=== PATIENT | female | born 1950 | race Caucasian/White ===

== ENCOUNTER 2022-11-27 17:38 | Emergency (ER) | payer MEDICARE, SELFPAY ==
[2022-11-27] VITALS (9 sets, daily range): BP systolic 120–163; BP diastolic 43–100; PULSE 80–93; RESP 15–20; TEMP 36.4; O2SAT 96–99
--- NOTE | ~2022-11-27 | CT_ITS ---
EXAMINATION: CTA chest PE protocol DATE: 11/27/2022 22:45 INDICATION: Chest tightness post recent surgery TECHNIQUE: Computed tomography (CT) pulmonary angiogram of the chest was performed with 100 mL Omnipa que-350 intravenous contrast. Additional 3D reconstructions utilizing coronal maximum intensity proje ction (MIP) were performed. Automated exposure control and iterative reconstruction technique were em ployed. The dose-length product was 230.33 mGy-cm. COMPARISON: None FINDINGS: Excellent contrast opacification of the pulmonary arteries. There is mild streak artifact from dense contrast in the superior vena cava and right atrium. Minimal scattered respiratory motion artifact wh ich does not significantly limit evaluation. No pulmonary embolism. No pneumonia or pulmonary edema. Mild bibasilar atelectasis. Atelectasis accounts for the blunting at the posterior sulci on the prior radiographs. No pleural effusion. Heart size is normal. Thoracic aorta is normal in caliber with no dissection. No pathologically enlarged thoracic lymphadenopathy. The visualized upper abdomen is unre markable. Severe thoracic spondylosis. Partially visualized plate and screw fixation for anterior spi nal fusion at C6-C7. IMPRESSION: 1. No pulmonary embolism. 2. Bibasilar atelectasis. Reviewed, dictated and finalized at location A.
--- NOTE | ~2022-11-27 | XR_ITS ---
EXAMINATION: XR chest 2V DATE: 11/27/2022 18:18 INDICATION: Chest tightness TECHNIQUE: frontal and lateral views of the chest were obtained. COMPARISON: None FINDINGS: Distinct opacities at the posterior lung bases on the lateral projection, unclear whether left-sided, right-sided or bilaterally. No clearly defined mild linear discoid atelectasis at the bilateral lung bases on the frontal projection. No pneumothorax. Possible small right pleural effusion. The cardiom ediastinal silhouette is normal. Plate-screw fixation for lower cervical anterior spinal fusion. Dege nerative loose osteochondral body at the deep subscapular recess of the left glenohumeral joint. IMPRESSION: 1. Mild bibasilar opacities which could represent atelectasis, mild pulmonary edema, pneumonia or mart e combination thereof. 2. Likely small right pleural effusion. Reviewed, dictated and finalized at location A. IMPRESSION: 1. Mild bibasilar opacities which could represent atelectasis, mild pulmonary e hugh, pneumonia or some combination thereof. 2. Likely small right pleural effusion.
--- NOTE | 2022-11-27 17:40 | ECG_ITS ---
Measurements Intervals [place] Rate: 83 P: 12 VT: 143 QRS: 32 QRSD: 85 T: 32 QT: 326 QTc: 383 Interpretive Statements SINUS RHYTHM BASELINE ARTIFACT- I, II, III, AVR, AVL, AVF, V5-V6 NORMAL ECG NO PREVIOUS ECG AVAILABLE FOR COMPARISON Electronically Signed On 11-27-2022 20:26:58 CDT by Hussein Hull D.O.
[2022-11-27 17:57] LABS: Basophils Percent Auto 0.5 % (0.2-1.2); Eosinophils Absolute Auto 0.3 K/mm3 (0-0.3); Eosinophils Percent Auto 4.4 % (0-4.4); Hemoglobin 12.8 g/dL (12.0-15.0); Immature Granulocyte Absolute 0.02 K/mm3 (0.00-0.031); Immature Granulocyte Percent A 0.3 % (0-0.5); Lymphocytes Percent Auto 25.2 % (18.3-44.2); Mean Corpuscular Volume 93.7 fl (80-100); Mean Platelet Volume 8.7 fl (7.4-10.4); Monocytes Absolute Auto 0.7 K/mm3 (0.1-0.6); Monocytes Percent Auto 11.4 % (2.6-8.5); Neutrophils Absolute Auto 3.5 K/mm3 (1.3-6.7); Neutrophils Percent Auto 58.2 % (45.5-73.1); Platelet Count Result 377 k/mm3 (150-375); Red Blood Count 4.27 M/mm3 (4.2-5.4); Red Cell Distribution Width 12.4 % (11.5-14.5)
[2022-11-27 18:06] LABS: Prothrombin Time 13.4 Seconds (11.1-14.7)
[2022-11-27 18:07] LABS: Partial Thromboplastin Time 26.9 SECONDS (22.3-36.8)
[2022-11-27 18:10] LABS: Alanine Aminotransferase 32 U/L (6-35); Albumin Level 3.8 g/dL (3.5-5.1); Alkaline Phosphatase 80 U/L (38-126); Anion Gap 2 mmol/L (8-16); Aspartate Amino Transferase 42 U/L (14-36); Bilirubin,Total 0.4 mg/dL (0.2-1.3); Blood Urea Nitrogen 17 mg/dL (7-17); Calcium 8.9 mg/dL (8.4-10.2); Carbon Dioxide 33 mmol/L (22-30); Chloride 103 mmol/L (98-107); Estimated CRCL calculation 59 ml/min; Estimated Glomerular Filt Rate > 60; Glucose 116 mg/dL (65-110); Lipase 114 U/L (23-300); Potassium 3.9 mmol/L (3.4-5.0); Sodium 138 mmol/L (137-145)
[2022-11-27 18:21] LABS: Troponin I < 0.012 ng/mL (0.000-0.034)
--- NOTE | 2022-11-27 20:30 | PC.NURSE ---
patient states that her chest pain has subsided. strongly suggested with patient's recent knee replacement that she continue to wait for a room to be evaluated by a provider.
[2022-11-27 21:48] LABS: Troponin I < 0.012 ng/mL (0.000-0.034)
--- NOTE | 2022-11-27 23:21 | ED.GENADULT ---
HPI - General Adult General Chief complaint: Chest Pain Stated complaint: chest pain/elevated BP Time Seen by Provider: 11/27/22 22:02 History of Present Illness HPI narrative: this is a 72-year-old female presenting ED with a chief complaint of chest tightness. The tightness started at 3:30 p.m. after she woke from a nap. It is nonradiating. It has since resolved. She has had this happen 1 or 2 times per month for the last 5 months. It improves when she relaxes and there are no exacerbating symptoms. She does say was associated with some shortness of breath. There is no diaphoresis vomiting or exertional component. She did just have a total knee replacement. No other complaints. Related Data Allergies Allergy/AdvReac Type Severity Reaction Status Date / Time Penicillins Allergy Intermediate Rash Verified 06/19/17 10:53 [facility] Past Medical History Medical History GERD (gastroesophageal reflux disease) Surgical History Surgical History H/O total knee replacement Exam Narrative: APPEARANCE: No apparent distress. Patient is pleasant polite during the interview Head: atraumatic. EYES: EOMI, NOSE: Atraumatic NECK: Trachea midline RESPIRATORY: No increased rate of breathing , clear to auscultation CARDIOVASCULAR: RRR, no peripheral edema ABDOMINAL: Non-distended MUSCULOSKELETAl: focal exam of the left knee revealed a well-healed surgical scar, without significant swelling or warmth to the joint. No swelling of the calf. NEURO: Alert. Moving 4/4 extremities SKIN:: Warm, dry. Normal color PSYCHIATRIC: Normal affect Course Vital Signs Vital signs: Vital Signs Temperature 97.6 F 11/27/22 17:41 Pulse Rate 86 11/27/22 17:41 Respiratory Rate 20 11/27/22 17:41 Blood Pressure 136/93 H 11/27/22 17:41 Pulse Oximetry 99 11/27/22 17:41 Oxygen Delivery Room Air 11/27/22 17:41 Temperature 97.6 F 11/27/22 21:23 Pulse Rate 93 11/27/22 22:31 Respiratory Rate 17 11/27/22 22:31 Blood Pressure 154/100 H 11/27/22 22:31 Pulse Oximetry 98 11/27/22 23:18 Oxygen Delivery Room Air 11/27/22 23:18 Medical Decision Making MDM Narrative Medical decision making narrative: -Presentation: 72-year-old female presenting with chest tightness that has since resolved. Recent surgery. -DDX includes but is not limited to: ACS, PE, anxiety, pneumonia -Co-morbidities complicating care: recent knee replacement surgery -Social determinants of health: patient is a manager finance, she lives alone, accompanied by her friend Mari -External Chart Review: none -Hx from independent Sources: Mari @ bedside -Discussion of Management/Consultants: none -Independent interpretation of studies: CBC normal. Metabolic panel normal. Troponins undetectable x2. Chest x-ray showed bibasilar atelectasis with small right pleural effusion. CTA chest showed no pulmonary embolism. Independent EKG interpretation: Rhythm [sinus], Rate [83], [place] -[normal], [place] -[normal], QRS [narrow], QTC [normal], T waves -[negative for concerning inversions], ST Segments - [Negative for concerning elevations] Final interpretations: [Normal Sinus Rhythm] Dx tests considered but not ordered: none -Procedures: none -Interventions: none -Shared decision making / Disposition: patient's workup is negative. Heart score is 2. Patient is following up with cardiology next week. Patient return if her condition gets worse. -RX Vital Signs Vital Signs: Vital Signs Temperature 97.6 F 11/27/22 17:41 Pulse Rate 86 11/27/22 17:41 Respiratory Rate 20 11/27/22 17:41 Blood Pressure 136/93 H 11/27/22 17:41 Pulse Oximetry 99 11/27/22 17:41 Oxygen Delivery Room Air 11/27/22 17:41 Temperature 97.6 F 11/27/22 21:23 Pulse Rate 93 11/27/22 22:31 Respiratory Rate 17 11/27/22 22:31 Bl
== END 2022-11-27 23:36 | disposition home or self-care (01) ==
PROVIDERS: Emergency Medicine; Emergency Provider Emergency Medicine
DX: R07.89 Other chest pain (principal); K21.9 Gastro-esophageal reflux disease without esophagitis
CPT/HCPCS: 36415; 71046; 71275; 80053; 83690; 84484; 85025; 85610; 85730; 93005; 99284; Q9967

== ENCOUNTER 2023-04-14 08:02 | Emergency (ER) | payer MEDICARE, SELFPAY ==
[2023-04-14 08:11] VITALS: BP 157/85; PULSE 76; RESP 16; TEMP 36.8; O2SAT 97
--- NOTE | 2023-04-14 08:15 | ED.URI ---
HPI - URI/Sore Throat General Chief Complaint: Upper Respiratory Infection Stated Complaint: Cough Source: patient Mode of arrival: ambulatory Limitations: no limitations History of Present Illness HPI Narrative: 73 y/o female presented for c/o cough for over 10 days, with nasal congestion and drainage. Taking otc meds. Endorses sick contacts with similar symptoms. Tested negative for covid today. Denies fatigue, sob, wheezing, n/v/d/f/c. Related Data Allergies Allergy/AdvReac Type Severity Reaction Status Date / Time Penicillins Allergy Intermediate Rash Verified 06/19/17 10:53 clindamycin Allergy Unknown Verified 04/14/23 08:14 Review of Systems Review of Systems: CONSTITUTIONAL: Denies body aches, fever, chills, or sweats. EYES: Denies visual changes, redness, or discharge. ENT: Reports rhinorrhea, congestion, denies sore throat, or otalgia. CARDIOVASCULAR: Denies chest pain, palpitations, or edema. RESPIRATORY: Reports cough, denies sob, wheezing. GASTROINTESTINAL: Denies abdominal pain, nausea, vomiting, or diarrhea. GENITOURINARY: Denies dysuria or hematuria. SKIN: Denies rash, itching, or wounds. MUSCULOSKELETAL: Denies back pain, joint pain, or myalgia. NEUROLOGIC: Denies headache, numbness, tingling, or weakness. PSYCH: Denies depression or anxiety. All systems reviewed & are unremarkable except as noted in HPI and below PMFSH Past Medical History Medical History GERD (gastroesophageal reflux disease) Surgical History Surgical History H/O total knee replacement Comments At time of signature, I have reviewed and agree with nursing past medical, surgical, social and family history unless otherwise noted. Please see nursing chart for further information. There is no relevant family history pertinent to the presenting complaint Exam Narrative: GENERAL: Well-appearing, in no acute distress. EYES: EOMI. No redness or drainage. Conjunctivae normal. ENT: Mucous membranes pink and moist. No rhinorrhea. TMs normal bilaterally. Throat normal. Uvula midline. NECK: Normal AROM. Supple. CHEST: No respiratory distress. Lungs clear to all dailey. HEART: Regular rate and rhythm. No murmur appreciated. ABDOMEN: Soft, nontender, nondistended, normal active bowel sounds. EXTREMITIES: Normal range of motion. No edema. SKIN: Warm, dry, no rash. Capillary refill normal. Normal skin turgor. NEURO: Alert and oriented x3. Gait steady. PSYCH: Normal affect. Course Course Emergency Course: Patient is aware of diagnosis, understands and agrees to treatment plan. Anticipatory guidance given. Patient agrees to follow-up as directed and is aware of reasons to seek care at the emergency department. Portions of this record may have been created with voice recognition software Level of Care: Express Care Visit MDM - URI/Sore Throat MDM Narrative Medical decision making narrative: Patient has had symptoms for over 10 days, advised otc meds and if no improvement she can start abx/steroid as she will be traveling out of town next week. Advised supportive measures and signs/symptoms to go to the ER. Pt is appropriate for outpt treatment and f/u. Differential Diagnosis Differential diagnosis: Likely upper respiratory infection, sinusitis, viral infection and bronchitis Discharge Plan Discharge Clinical Impression: Bronchitis Patient Disposition: Home, Self-Care Condition: Stable Instructions: Antibiotic Form, Acute Bronchitis (ED) Additional Instructions: Take medication as directed Recommend Flonase spray and Zyrtec (or Claritin/Hamida) over the counter Cough syrup may cause drowsiness; avoid driving or take it at night time. Tylenol 1000mg every 8 hours as needed for pain Symptomatic treatment includes: rest, fluids, and increase humidity of the air at home. Follow up with your
[2023-04-14 08:16] VITALS: BP 157/85; PULSE 76; RESP 16; TEMP 36.8; O2SAT 97
== END 2023-04-14 08:29 | disposition home or self-care (01) ==
PROVIDERS: Emergency Provider Nurse Practitioner Family
DX: J40 Bronchitis, not specified as acute or chronic (principal)
CPT/HCPCS: 99213; G0463